=== PATIENT | female | born 1950 | race Asian ===

== ENCOUNTER → 2017-12-23 | Outpatient (CLI) | payer OTHER | LOC: BMCIMAGING 14:47 | PROVIDERS: ATTEND Internal Medicine | DX: Z12.31 Encounter for screening mammogram for malignant neoplasm of breast (principal); Z80.3 Family history of malignant neoplasm of breast ==

== ENCOUNTER → 2018-07-22 | Outpatient (CLI) | payer OTHER | LOC: FIMAGING 13:12 ==

== ENCOUNTER 2018-08-04 05:58 | Observation (INO) | payer OTHER | END 2018-08-05 11:00 | disposition home or self-care (01) | LOC: F3N 05:58 ==